=== PATIENT | male | born 1935 | race Caucasian/White ===

== ENCOUNTER 2018-03-19 23:27 | Emergency (ER) | payer MEDICARE, BC ==
[2018-03-20] MEDS ORDERED: LIDOCAINE/EPINEPHR/TETRACAINE 5 ML BOTTLE TOPICAL ONE (00:02)
--- NOTE | 2018-03-20 00:05 | ED ---
Skin/Abscess/FB HPI - General Chief complaint: Skin/Abscess/Foreign Body Stated complaint: abscess Time Seen by Provider: 03/19/18 23:37 Source: patient, RN notes reviewed, old records reviewed Mode of arrival: ambulatory Limitations: no limitations - History of Present Illness Initial comments: This patient is an 82 year old male with a history of "boil" over his left scrotum. Patient reports he has had this boil for awhile, but noticed increased swelling over the past day. Patietn states that he also has had left testicular swelling for many years. States that he has been evaulated by PCP but was told it was nothing to worry about. He denies dysuria or abdominal pain. - Related Data Home Medications Medication Instructions Recorded Confirmed Atorvastatin [Lipitor] 10 mg PO HS 12/16/15 12/16/15 Previous Rx's Medication Instructions Recorded Budesonide [Pulmicort] 1 mg INHALATION RT-BID #60 nebu 12/22/15 Diltiazem Cd [Cardizem CD] 180 mg PO DAILY #30 cap.er.24h 12/22/15 Edoxaban Tosylate [Savaysa] 30 mg PO DAILY #30 tablet 12/22/15 Ipratropium Nebulized [Atrovent 0.5 mg INHALATION RT-QID PRN #120 12/22/15 Nebulized] nebu Levalbuterol Nebulized (Conc) 1.25 mg INHALATION RT-QID #120 ml 12/22/15 [Xopenex Nebulized (Conc)] Levofloxacin [Levaquin] 750 mg PO Q48H #3 tab 12/22/15 Sulfamethox-Tmp 800-160Mg [Bactrim 2 tab PO DAILY #28 tab 03/20/18 DS 800-160 mg] Allergies Allergy/AdvReac Type Severity Reaction Status Date / Time No Known Allergies Allergy Verified 03/19/18 23:33 Review of Systems ROS Statement: Those systems with pertinent positive or pertinent negative responses have been documented in the HPI. ROS Other: All systems not noted in ROS Statement are negative. Past Medical History Past Medical History: Atrial Fibrillation, Cancer, COPD, Hyperlipidemia, Osteoarthritis (OA), Pneumonia, Prostate Disorder Additional Past Medical History / Comment(s): COPD, chronic back pain, skin cancer, osteoarthritis, BPH History of Any Multi-Drug Resistant Organisms: None Reported Past Surgical History: Hernia Repair Additional Past Surgical History / Comment(s): Resection of the lesion from the base of the tongue, eyelid surgery, colonoscopy, vasectomy. Past Anesthesia/Blood Transfusion Reactions: No Reported Reaction Additional Past Anesthesia/Blood Transfusion Reaction / Comment(s): clausterphobia Past Psychological History: No Psychological Hx Reported Smoking Status: Current every day smoker Past Alcohol Use History: None Reported Past Drug Use History: None Reported - Past Family History Father Family Medical History: Cancer (Father at age of 53 from brain cancer) Additional Family Medical History / Comment(s): brain ca Mother Family Medical History: Cancer, CVA/TIA (Mother at age of 65 from CVA), Diabetes Mellitus Additional Family Medical History / Comment(s): not sure what type of cancer Sister(s) Family Medical History: Myocardial Infarction ([place]) (Patient has one sister who at age of 73 from [place]) Son(s) Family Medical History: No Reported History (Patient has one son no major medical problems) Daughter(s) Family Medical History: No Reported History (Patient has one daughter no major medical problems) General Exam - General Exam Comments Initial Comments: This patient is an 82 year old male, no distress. Limitations: no limitations General appearance: alert, in no apparent distress Head exam: Present: atraumatic, normocephalic, normal inspection Eye exam: Present: normal appearance, PERRL, EOMI. Absent: scleral icterus, conjunctival injection, periorbital swelling ENT exam: Present: normal exam, mucous membranes moist Neck exam: Present: normal inspection. Absent: tenderness, meningismus, lymphadenopathy Respiratory exam: Present: normal lung sounds bilaterally. Absent: respiratory distress, wheezes, rales, rhonchi, stridor Cardiovascular Exam: Present: regular rate, normal rhythm, normal heart sounds. Absent: systolic murmur, diastolic murmur, rubs, gallop, clicks GI/Abdominal exam: Present: soft, normal bowel sounds. Absent: distended, tenderness, guarding, rebound, rigid exam: Present: scrotal swelling (left testicular swelling. ), other (1 cm superficial epidermoid cyst with small puss drainage on left scrotum. ). Absent : testicular tenderness Extremities exam: Present: normal inspection, full ROM, normal capillary refill. Absent: tenderness, pedal edema, joint swelling, calf tenderness Back exam: Present: normal inspection Course Vital Signs 03/19/18 03/20/18 23:30 02:18 Temperature 97.7 F 97.3 F L Pulse Rate 79 78 Respiratory 18 20 Rate Blood Pressure 171/75 147/77 O2 Sat by Pulse 99 98 Oximetry Procedures - Incision & Drainage Site: scrotum Size (cm): 1 Anesthetic Used: lidocaine 1% Amount (mLs): 2 Sterile Field Used?: Yes Scalpel Used: #11 I&D Drainage Obtained: Pus Culture Obtained?: Yes Patient Tolerated Procedure: well, no complications Medical Decision Making - Medical Decision Making Patient is a 82 year old male with scrotal abscess complaint and left testicualr swelling for many years. Patient has small epidermoid cyst which was incised and drained. Culture obtained.UA is normal. US scrotum shows hydrocele. Will start patient on bactrim for small inflammation on scrotum. Discussed warm compress and follow up with PCP. - Lab Data Lab Results 03/20/18 Range/Units 00:50 Urine Color Light Yellow Urine Appearance Clear (Clear) Urine pH 6.5 (5.0-8.0) Ur Specific [place] 1.007 (1.001-1.035) Urine Protein Negative (Negative) Urine Glucose (UA) Negative (Negative) Urine Ketones Negative (Negative) Urine Blood Negative (Negative) Urine Nitrite Negative (Negative) Urine Bilirubin Negative (Negative) Urine Urobilinogen <2.0 (<2.0) mg/dL Ur Leukocyte Esterase Negative (Negative) - Radiology Data Radiology results: report reviewed US shows left testicular hydrocele. Disposition Clinical Impression: Scrotal abscess, Hydrocele Disposition: HOME SELF-CARE Condition: Stable Instructions: Hydrocele (ED), Abscess Incision and Drainage (ED) Additional Instructions: Patient has a follow-up with primary care provider within the next few days. Take the antibiotics as prescribed. Recommended doing warm compresses over the area or sitting in warm bath. Prescriptions: Sulfamethox-Tmp 800-160Mg [Bactrim DS 800-160 mg] 2 tab PO DAILY #28 tab Is patient prescribed a controlled substance at d/c from ED?: No When asked, does pt state using other controlled substances?: No If prescribed controlled substance>3 days was MAPS reviewed?: No If opioid is for acute pain is fill amount 7 days or less?: No If Rx opioid, was Start Talking consent form obtained?: No Referrals: Arnaldo Rodriguez MD [Primary Care Provider] - 1-2 days Time of Disposition: 00:16
--- NOTE | 2018-03-20 01:38 | US ---
EXAMINATION TYPE: US scrotum with doppler. Grayscale and color Doppler Duplex imaging performed of arpit lomeli scrotum. DATE OF EXAM: 03/20/2018 COMPARISON: NONE CLINICAL HISTORY: Pain. EXAM MEASUREMENTS: TESTICLES: Right Testicle: 2.3 X 1.6 X 2.2 cm Left Testicle: 4.1 X 1.5 X 2.1 cm EPIDIDYMIS HEAD: Right Epididymis: 1.1 cm Left Epididymis: unable to visualize this may be due to large hydrocele Doppler performed to assess for testicular vascularity; good bilateral color flow and waveforms are s een. There is no evidence of testicular torsion. Presence of hydroceles: Left hydrocele measuring 5.2 x 2.6 x 3.4cm Presence of varicoceles: no IMPRESSION: No evidence of testicular torsion or mass. Moderate left-sided hydrocele. Left testicle i s smaller than the right.
[2018-03-20 01:54] LABS: Appearance,Urine Clear (Clear); Bilirubin,Urine Negative (Negative); Blood,Urine Negative (Negative); Color,Urine Light Yellow; Glucose,Urine (UA) Negative (Negative); Ketones,Urine Negative (Negative); Leukocyte Esterase,Urine Negative (Negative); Nitrite,Urine Negative (Negative); PH, Urine 6.5 (5.0-8.0); Protein,Urine Negative (Negative); Specific Gravity,Urine 1.007 (1.001-1.035); Urobilinogen,Urine <2.0 mg/dL (<2.0)
[2018-03-20] MEDS ORDERED: SULFAMETH-TMP DS STARTER PACK 2 TAB BTL PO STA (01:58)
[2018-03-20 02:19] VITALS: BP 147/77; PULSE 78; RESP 20; TEMP 97.3
== END 2018-03-20 02:24 | disposition home or self-care (01) ==
LOC: EC 23:27
DX: N49.2 Inflammatory disorders of scrotum (principal); N43.3 Hydrocele, unspecified; E78.5 Hyperlipidemia, unspecified; F17.200 Nicotine dependence, unspecified, uncomplicated; Z85.828 Personal history of other malignant neoplasm of skin; Z79.899 Other long term (current) drug therapy; Z98.890 Other specified postprocedural states
CPT/HCPCS: 55100; 76870; 81003; 87070; 87205; 93975; 99284

== ENCOUNTER → 2018-08-09 | Outpatient (CLI) | payer MEDICARE, BC ==
--- NOTE | 2018-08-10 06:57 | CT ---
EXAMINATION TYPE: CT angio thor/abd aorta DATE OF EXAM: 08/09/2018 COMPARISON: 12/17/2015 HISTORY: f/u AAA CT DLP: 624.2 mGycm. Automated Exposure Control for Dose Reduction was Utilized. CONTRAST: CT scan of the thorax and abdomen is performed with IV Contrast, patient injected with 80 mL of Isovu e 370. FINDINGS: LUNGS: There are moderate emphysematous changes with paraseptal blebs of the right lower lobe. Biapic al pleural-parenchymal plaquing is noted. The lungs are grossly clear, there is no concerning parench ymal mass or nodule identified. There is no pleural effusion or pneumothorax seen. The tracheobron chial tree is patent. MEDIASTINUM: Thoracic aorta is within normal limits of size measuring 3.8 cm at the aortic root and 3 .1 cm of the ascending thoracic aorta. Descending thoracic aorta measures 2.5 cm. No evidence of diss ection is seen. There is a conventional three-vessel branch pattern of the aortic arch. Severe toscano ry artery calcifications are seen, 3 vessel. Moderate calcific and noncalcific atheromatous plaquing of the thoracic aorta is noted. There are no greater than 1 cm hilar or mediastinal lymph nodes. No pericardial effusion is seen. VASCULATURE: The unenhanced images demonstrate no evidence of intramural hematoma. Chronic dissectio n flap is seen of the abdominal aorta thickening just below the renal arteries and extending approxim ately 1 cm proximal to the aortoiliac bifurcation. In addition to the chronic dissection flap of the infrarenal abdominal aorta there is large amount of mural thrombus seen anteriorly. Largest caliber o f the infrarenal abdominal aorta measures 4.7 x 4.6 cm in anterior posterior by transverse dimension and measures 7.1 cm in craniocaudal dimension. Mural plaquing and atheromatous changes are seen of th e common iliac arteries however there is no aneurysmal dilatation with the left measuring 1.5 cm and the right measuring 1.5 cm as well. LIVER/GB: 2 fluid attenuated hepatic cysts are seen the larger measuring 2.3 cm and the smaller measu ring 1.0 cm. No cholelithiasis is seen.. PANCREAS: No significant abnormality is seen. SPLEEN: No significant abnormality is seen. ADRENALS: No significant abnormality is seen. KIDNEYS: There is a left pararenal cyst extending into the renal sinus without obstruction appearing simple in nature and measuring up to 3.9 cm. Additional left lower pole 2 cm cyst is exophytic. Renal arterial calcification versus 2 mm left lower pole nonobstructing calculus (less likely) is seen. BOWEL: No significant abnormality is seen. GENITAL ORGANS: No gross abnormality seen. LYMPH NODES: No greater than 1cm abdominal lymph nodes are appreciated. OSSEOUS STRUCTURES: Moderate multilevel degenerative change of the spine is present. IMPRESSION: 1. Infrarenal abdominal aortic aneurysm measuring 4.7 x 4.6 x 7.1 cm with chronic dissection flap. N o prior examinations for comparison to determine stability. 2. Left renal and hepatic cysts. 3. Moderate emphysema. 4. Severe three-vessel coronary artery calcifications, marker of coronary artery disease.
== END | disposition home or self-care (01) ==
LOC: RADCTMAIN 15:03
PROVIDERS: ATTEND Internal Medicine Clinical Cardiac Electrophysiology
DX: I71.4 Abdominal aortic aneurysm, without rupture (principal); I25.10 Atherosclerotic heart disease of native coronary artery without angina pectoris; J43.9 Emphysema, unspecified; N28.1 Cyst of kidney, acquired; K76.89 Other specified diseases of liver
CPT/HCPCS: 82565; 84520; 71275; 36415; 74174; Q9967

== ENCOUNTER → 2018-08-16 | Outpatient (CLI) | payer MEDICARE, BC ==
[2018-08-16 16:53] LABS: Anion Gap 6.8 mmol/L (4.00-12.00); Calcium 8.8 mg/dL (8.7-10.3); Carbon Dioxide 23.2 mmol/L (21.6-31.8); Potassium 5.3 mmol/L (3.5-5.5)
== END | disposition home or self-care (01) ==
LOC: LABWHC1 10:38
PROVIDERS: ATTEND Internal Medicine Clinical Cardiac Electrophysiology
DX: N18.9 Chronic kidney disease, unspecified (principal)
CPT/HCPCS: 36415; 80048

== ENCOUNTER → 2018-10-18 | Outpatient (CLI) | payer MEDICARE, BC ==
[2018-10-18 16:42] LABS: LDL Cholesterol,Calculated 101.4 mg/dL (0.0-131.0); VLDL Calculation 18.6 mg/dL (5.00-40.00)
== END | disposition home or self-care (01) ==
LOC: LABWHC1 09:52
PROVIDERS: ATTEND Internal Medicine Clinical Cardiac Electrophysiology
DX: I25.10 Atherosclerotic heart disease of native coronary artery without angina pectoris (principal); E78.5 Hyperlipidemia, unspecified
CPT/HCPCS: 36415; 80061

== ENCOUNTER → 2019-02-20 | Outpatient (CLI) | payer MEDICARE, BC ==
[2019-02-20 08:53] LABS: Basophils # (A) 0.1 k/uL (0-0.2); Basophils % (A) 1 %; Eosinophils # (A) 0.6 k/uL (0-0.7); Eosinophils % (A) 7 %; HCT 34.4 % (39.0-53.0); HGB 11.4 gm/dL (13.0-17.5); Lymphocytes # (A) 3.1 k/uL (1.0-4.8); Lymphocytes % (A) 37 %; MCH 29.2 pg (25.0-35.0); MCHC 33.2 g/dL (31.0-37.0); MCV 88.2 fL (80.0-100.0); Mean Platelet Volume 7.5; Monocytes # (A) 0.4 k/uL (0-1.0); Monocytes % (A) 5 %; Neutrophils # (A) 3.9 k/uL (1.3-7.7); Neutrophils % (A) 47 %; Platelet Count 222 k/uL (150-450); RDW 14.9 % (11.5-15.5); WBC 8.4 k/uL (3.8-10.6)
[2019-02-20 09:19] LABS: Appearance,Urine Clear (Clear); Bilirubin,Urine Negative (Negative); Blood,Urine Negative (Negative); Color,Urine Yellow; Glucose,Urine (UA) Negative (Negative); Ketones,Urine Negative (Negative); Leukocyte Esterase,Urine Negative (Negative); Nitrite,Urine Negative (Negative); Protein,Urine Negative (Negative); Specific Gravity,Urine 1.014 (1.001-1.035); Urobilinogen,Urine <2.0 mg/dL (<2.0)
[2019-02-20 17:36] LABS: Albumin 4.1 g/dL (3.80-4.90); Albumin/Globulin Ratio 1.86 (1.60-3.17); Anion Gap 11.3 mmol/L (4.00-12.00); Calcium 8.7 mg/dL (8.7-10.3); Carbon Dioxide 21.7 mmol/L (21.6-31.8); Globulin 2.2 g/dL (1.6-3.3); Potassium 4.4 mmol/L (3.5-5.5); Total Bilirubin 0.7 mg/dL (0.2-1.2); Total Protein 6.3 g/dL (6.2-8.2)
[2019-02-20 19:15] LABS: Hemoglobin A1C 5.9 % (4.0-6.0)
== END | disposition home or self-care (01) ==
LOC: LABWHC1 08:18
PROVIDERS: ATTEND Internal Medicine Geriatric Medicine
DX: R79.9 Abnormal finding of blood chemistry, unspecified (principal); Z00.00 Encounter for general adult medical examination without abnormal findings; N40.0 Benign prostatic hyperplasia without lower urinary tract symptoms; I25.10 Atherosclerotic heart disease of native coronary artery without angina pectoris; R73.9 Hyperglycemia, unspecified
CPT/HCPCS: 36415; 80053; 80061; 81003; 83036; 84153; 84439; 84443; 85025

== ENCOUNTER 2019-04-29 02:47 | Emergency (ER) | payer MEDICARE, BC ==
[2019-04-29 02:54] VITALS: BP 171/82; PULSE 70; RESP 18; TEMP 98
--- NOTE | 2019-04-29 03:19 | ED ---
Recheck HPI - General Chief Complaint: Recheck/Abnormal Lab/Rx Stated Complaint: Concerned about bleeding Time Seen by Provider: 04/29/19 03:11 Source: patient, RN notes reviewed, old records reviewed Mode of arrival: ambulatory Limitations: no limitations - History of Present Illness Initial Comments: Patient is a 83 year old male, on Vayasa. Presents for concern of bruising spots on R arm. Patient reports he returned home from [place], and after his did research on the internet about bruising she wrote him a note about concern for internal bleeding. Patient reports that he had an insect bite on his arm, and scratched it he later noticed a bruise. PAtient has no pain or complaints. He denies bloody stool. - Related Data Home Medications Medication Instructions Recorded Confirmed Atorvastatin [Lipitor] 10 mg PO HS 12/16/15 12/16/15 Previous Rx's Medication Instructions Recorded Budesonide [Pulmicort] 1 mg INHALATION RT-BID #60 nebu 12/22/15 Diltiazem Cd [Cardizem CD] 180 mg PO DAILY #30 cap.er.24h 12/22/15 Edoxaban Tosylate [Savaysa] 30 mg PO DAILY #30 tablet 12/22/15 Ipratropium Nebulized [Atrovent 0.5 mg INHALATION RT-QID PRN #120 12/22/15 Nebulized 0.2 MG/ML] nebu Levalbuterol Nebulized (Conc) 1.25 mg INHALATION RT-QID #120 ml 12/22/15 [Xopenex Nebulized (Conc)] Levofloxacin [Levaquin] 750 mg PO Q48H #3 tab 12/22/15 Sulfamethox-Tmp 800-160Mg [Bactrim 2 tab PO DAILY #28 tab 03/20/18 DS 800-160 mg] Allergies Allergy/AdvReac Type Severity Reaction Status Date / Time No Known Allergies Allergy Verified 03/19/18 23:33 Review of Systems ROS Statement: Those systems with pertinent positive or pertinent negative responses have been documented in the HPI. ROS Other: All systems not noted in ROS Statement are negative. Past Medical History Past Medical History: Atrial Fibrillation, Cancer, COPD, Hyperlipidemia, Osteoarthritis (OA), Pneumonia, Prostate Disorder Additional Past Medical History / Comment(s): COPD, chronic back pain, skin cancer, osteoarthritis, BPH History of Any Multi-Drug Resistant Organisms: None Reported Past Surgical History: Hernia Repair Additional Past Surgical History / Comment(s): Resection of the lesion from the base of the tongue, eyelid surgery, colonoscopy, vasectomy. Past Anesthesia/Blood Transfusion Reactions: No Reported Reaction Additional Past Anesthesia/Blood Transfusion Reaction / Comment(s): clausterphobia Past Psychological History: No Psychological Hx Reported Smoking Status: Current every day smoker Past Alcohol Use History: None Reported Past Drug Use History: None Reported - Past Family History Father Family Medical History: Cancer (Father at age of 53 from brain cancer) Additional Family Medical History / Comment(s): brain ca Mother Family Medical History: Cancer, CVA/TIA (Mother at age of 65 from CVA), Diabetes Mellitus Additional Family Medical History / Comment(s): not sure what type of cancer Sister(s) Family Medical History: Myocardial Infarction ([place]) (Patient has one sister who at age of 73 from [place]) Son(s) Family Medical History: No Reported History (Patient has one son no major medical problems) Daughter(s) Family Medical History: No Reported History (Patient has one daughter no major medical problems) General Exam - General Exam Comments Initial Comments: Pleasant well appearing 83 year old male, no distress. Limitations: no limitations General appearance: alert, in no apparent distress Head exam: Present: atraumatic, normocephalic, normal inspection Eye exam: Present: normal appearance, PERRL, EOMI. Absent: scleral icterus, conjunctival injection, periorbital swelling ENT exam: Present: normal exam, mucous membranes moist Neck exam: Present: normal inspection. Absent: tenderness, meningismus, lymphadenopathy Respiratory exam: Present: normal lung sounds bilaterally. Absent: respiratory distress, wheezes, rales, rhonchi, stridor Cardiovascular Exam: Present: regular rate, normal rhythm, normal heart sounds. Absent: systolic murmur, diastolic murmur, rubs, gallop, clicks GI/Abdominal exam: Present: soft, normal bowel sounds. Absent: distended, tenderness, guarding, rebound, rigid Extremities exam: Present: normal inspection, full ROM, normal capillary refill, other (3 separate 1cm cicular bruises on R distal dorsum forearm. No other areas of bruising. ). Absent: tenderness, pedal edema, joint swelling, calf tenderness Back exam: Present: normal inspection Neurological exam: Present: alert, oriented X3, CN II-XII intact Psychiatric exam: Present: normal affect, normal mood Skin exam: Present: warm, dry, intact, normal color. Absent: rash Course Vital Signs 04/29/19 02:48 Temperature 98.0 F Pulse Rate 70 Respiratory 18 Rate Blood Pressure 171/82 O2 Sat by Pulse 99 Oximetry Medical Decision Making - Medical Decision Making Patient is a 83 year old male, with bruising on R forearm. He is on blood thinner Vayasa. Patient has no other complaints and no other symptoms. Discussed this is normal to have thin skin and bruising on blood thinner. Patient discharged and advised to monitor for further bruising or to return if there is pain. . Disposition Clinical Impression: Bruising Disposition: HOME SELF-CARE Condition: Good Instructions (If sedation given, give patient instructions): Contusion in Adults (ED) Additional Instructions: Patient advised to follow-up with your primary care doctor. They will be normal to have easy bruising with being on a blood thinner. Return to the emergency department if there is a significant pain. Is patient prescribed a controlled substance at d/c from ED?: No Referrals: Arnaldo Rodriguez MD [Primary Care Provider] - 1-2 days Time of Disposition: 03:19
== END 2019-04-29 03:20 | disposition home or self-care (01) ==
LOC: EC 02:47
DX: S50.11XA Contusion of right forearm, initial encounter (principal); E78.5 Hyperlipidemia, unspecified; F17.200 Nicotine dependence, unspecified, uncomplicated; Z85.828 Personal history of other malignant neoplasm of skin; Z79.899 Other long term (current) drug therapy; W57.XXXA Bitten or stung by nonvenomous insect and other nonvenomous arthropods, initial encounter
CPT/HCPCS: 99283

== ENCOUNTER → 2019-07-02 | Outpatient (CLI) | payer MEDICARE, BC ==
--- NOTE | 2019-07-02 12:37 | CT ---
EXAMINATION TYPE: CT angio abdomen DATE OF EXAM: 07/02/2019 COMPARISON: CT aorta August 09, 2018 HISTORY: Abdominal aortic aneurysm without rupture. CT DLP: 421 mGycm, Automated Exposure Control for Dose Reduction was Utilized. CONTRAST: CTA scan of the abdomen and pelvis is performed without oral but with IV Contrast, patient injected w ith 80 mL of Isovue 370. Three-D reconstructed images are created independent workstation and reviewe d FINDINGS: LUNG BASES: There is right greater than left posterior reticulation and fibrosis redemonstrated. Kira re Coronary calcification and/or stents is again seen. LIVER/GB: Scattered simple appearing thin-walled cysts throughout the liver are again seen. PANCREAS: No significant abnormality is seen. SPLEEN: No significant abnormality is seen. ADRENALS: No significant abnormality is seen. KIDNEYS: Some simple tiny thin-walled cysts throughout the left kidney are redemonstrated. There is e xophytic simple appearing cyst lower pole level right kidney again seen. BOWEL: Prominent sigmoid colonic diverticulosis. PROSTATE/SEMINAL VESICLES: No gross abnormality seen. LYMPH NODES: No greater than 1cm abdominal or pelvic lymph nodes are appreciated. OSSEOUS STRUCTURES: [id number] multilevel spurring in the spine. Moderate multilevel disc spa ce narrowing most prominent lumbosacral junction with posterior spur disc complex effacing the anteri or thecal sac. OTHER: There is persistent infrarenal abdominal aortic aneurysm measuring 6 to 7 cm in length without common iliac artery extension. Aneurysm measures up to 4.6 x 4.4 cm transversely axial image 41 with out significant change from prior. There is persistent linear hypodensity axial image 39 could reflec t focal dissection unchanged from prior. Moderate mixed plaque in the periphery remains present. Mode rate plaque throughout the proximal abdominal aorta and iliac vessels is again seen. IMPRESSION: Stable 4.6 cm infrarenal abdominal aortic aneurysm with focal dissection proximal portion . No significant interval progression.
== END | disposition home or self-care (01) ==
LOC: RADCTMAIN 10:03
PROVIDERS: ATTEND Internal Medicine Clinical Cardiac Electrophysiology
DX: I71.4 Abdominal aortic aneurysm, without rupture (principal); Z98.890 Other specified postprocedural states
CPT/HCPCS: 82565; 84520; 74175; Q9967

== ENCOUNTER → 2021-08-31 | Outpatient (CLI) | payer MEDICARE, BC ==
--- NOTE | 2021-08-31 14:13 | CT ---
EXAMINATION TYPE: CT angio abdomen DATE OF EXAM: 08/31/2021 COMPARISON: 07/02/2019 HISTORY: Abdominal aortic aneurysm without rupture. CT DLP: 385.9 mGycm Automated exposure control for dose reduction was used. Contrast: None Technique: CT is performed at 5 mm thick sections. Reconstructed images were performed by the technol aleksandr on a separate computer. FINDINGS: Limited CT sections are obtained from the lung bases. Some pulmonary fibrosis in the posterior depend ent lung bases right more so than left. There is a cyst within the right lobe liver. The adrenal glands are normal. Kidneys and the cortical phase appear without masses or hydronephrosis. There is a cyst at the superior pole right kidney luis uring 3.1 cm and 7 Hounsfield units. Inferior vena cava is unremarkable. Spleen is unremarkable. Gall bladder is normal. Pancreas is normal. Degenerative changes are within the lumbar spine. Loops of bow el without fecal debris is within the colon. Contrast are normal. Attention is paid to the aorta. Vascular calcifications within the aorta. There is an abdominal aorti c aneurysm which begins below the level the renal arteries with a greatest transverse dimension of 4. 8 cm. This terminates at the bifurcation. Some mild fusiform prominence of the common iliac arteries may be present. Internal and external iliac vessels appear calcified but patent within the field-of-v iew. IMPRESSION: 1. ABDOMINAL AORTIC ANEURYSM MAY HAVE INCREASED TO 4.8 CM MAXIMUM DIAMETER FROM 4.6 CM RIGHT
== END | disposition home or self-care (01) ==
LOC: RADCTMAIN 12:27
PROVIDERS: ATTEND Internal Medicine Clinical Cardiac Electrophysiology
DX: I71.4 Abdominal aortic aneurysm, without rupture (principal)
CPT/HCPCS: 82565; 84520; 74175; Q9967

== ENCOUNTER → 2022-02-16 | Outpatient (CLI) | payer MEDICARE, BC ==
--- NOTE | 2022-02-16 13:34 | XR ---
EXAMINATION TYPE: XR chest 2V DATE OF EXAM: 02/16/2022 COMPARISON: Chest x-ray 12/16/2015, 08/13/2019 HISTORY: J 44.9 TECHNIQUE: Frontal and lateral views of the chest are obtained. FINDINGS: There is no focal air space opacity, pleural effusion, or pneumothorax seen. The cardiac silhouette size is within normal limits. Interstitium is increased. Underlying emphysematous changes are present. There are coronary artery calcifications. The osseous structures are intact. IMPRESSION: No acute cardiopulmonary process.
[2022-02-16 19:17] LABS: ALT 13 U/L (10-49); AST 21 U/L (14-35); African American GFR (CKD) 51.1 (60.0-200.0); Albumin 4.1 g/dL (3.8-4.9); Alkaline Phosphatase 91 U/L (41-126); Blood Urea Nitrogen 16.9 mg/dL (9.0-27.0); Calcium 9.2 mg/dL (8.7-10.3); Carbon Dioxide 23.9 mmol/L (20.0-27.5); Chloride 107 mmol/L (96-109); Chol/HDL Ratio 2.99 Ratio; Globulin 2.6 g/dL (1.6-3.3); Glucose 91 mg/dL (70-110); Non-African American GFR(CKD) 44.1 (60.0-200.0); Potassium 4.9 mmol/L (3.5-5.5); Sodium 141 mmol/L (135-145); Total Protein 6.7 g/dL (6.2-8.2); VLDL Calculation 18.08 mg/dL (5.00-40.00)
[2022-02-16 23:16] LABS: Basophils # (A) 0.11 X 10*3/uL (0.00-0.10); Basophils % (A) 1.1 %; Eosinophils # (A) 0.77 X 10*3/uL (0.04-0.35); Eosinophils % (A) 7.6 %; HCT 36.4 % (39.6-50.0); HGB 11.1 g/dL (13.0-17.0); Immature Grans, Automated 0.3 %; Lymphocytes # (A) 2.54 X 10*3/uL (0.90-5.00); Lymphocytes % (A) 25.1 %; MCH 29.1 pg (27.0-32.0); MCHC 30.5 g/dL (32.0-37.0); MCV 95.3 fL (80.0-97.0); Mean Platelet Volume 10.3 fL (9.5-12.2); Monocytes # (A) 0.78 X 10*3/uL (0.20-1.00); Monocytes % (A) 7.7 %; NRBC Per 100 WBC 0 /100 WBCS (0.0-0.0); Neutrophils % (A) 58.2 %; Platelet Count 238 X 10*3/uL (140-440); RBC 3.82 X 10*6/uL (4.40-5.60); RDW 15.1 % (11.5-14.5); WBC 10.13 X 10*3/uL (4.50-10.00)
== END | disposition home or self-care (01) ==
LOC: LABWHC1 11:08
PROVIDERS: ATTEND Internal Medicine Geriatric Medicine
DX: N18.9 Chronic kidney disease, unspecified (principal); J44.9 Chronic obstructive pulmonary disease, unspecified; I25.10 Atherosclerotic heart disease of native coronary artery without angina pectoris; R73.9 Hyperglycemia, unspecified
CPT/HCPCS: 36415; 71046; 80053; 80061; 83036; 84443; 85025